=== PATIENT | female | born 1980 | race Caucasian/White ===

== ENCOUNTER 2022-04-24 11:12 | Emergency (ER) | payer OTHER, SELFPAY ==
[2022-04-24 11:19] VITALS: BP 134/83; PULSE 77; RESP 18; TEMP 37.6; O2SAT 99
--- NOTE | 2022-04-24 13:50 | ED.EAR ---
HPI - Ear Problem General Chief complaint: Ear Stated complaint: ear pain, neck pain Time Seen by Provider: 04/24/22 13:26 Source: patient and family History of Present Illness HPI Narrative: 42 years old white female complaining of right ear pain that started 5 days ago, was seen by urgent care 2 days later and started on doxycycline and ciprofloxacin dexamethasone eardrops, no improvement. Patient denies any fever, chills, nausea, vomiting, patient unable to sleep because of the severity of pain. Right ear canal clogged and containing discharge, no blood Related Data Home Medications Medication Instructions Recorded Confirmed azelastine 137 mcg (0.1 %) nasal 137 mcg intranasal Q12H 02/18/21 05/01/21 spray aerosol cetirizine 10 mg capsule (Zyrtec) 10 mg PO DAILY PRN 02/18/21 05/01/21 Allergies Allergy/AdvReac Type Severity Reaction Status Date / Time Penicillins Allergy Unknown Verified 12/04/13 19:48 Review of Systems Review of Systems: All systems reviewed & are unremarkable except as noted in HPI and below PMFSH Surgical History Surgical History H/O arthroscopy of right knee lateral release 2002. Dr. Weinberg History of cholecystectomy 2014 Family History Family History Father Diabetes mellitus Social History Social History Smoking status: Current every day smoker Alcohol intake: current Gender identity (if verbalized by the patient): Female Exam Narrative: General appearance: Well-developed, well-nourished Skin: Normal color Head: Normocephalic, nontraumatic Eyes: Clear conjunctiva ENT: Oropharynx normal, right ear canal exam showed thick almost dried yellowish discharge, edema, very narrow ear canal. Neck: Supple, nontender, right neck tender lymphadenopathy Chest and respiratory: Airway patent, no respiratory distress, no accessory muscle use Vascular: Normal peripheral pulses, normal capillary refill. Musculoskeletal: Normal range of motion, nontender back Neurologic: Alert and oriented ?3, [employer] is normal as tested, no gross motor deficit Course Course Emergency Course: Patient been using Q-tips to clean her ears vigorously in the last few days, otitis externa is my concern. Patient have the right ear drops, which I believe does not go deep enough in her ear canal because of the edema and obstruction. My plan to add a wick to help the drops to go deep in her ear canals. Also to change the doxycycline to cefdinir. And to refer patient if there is no improvement in [address] Desai. Vital Signs Vital signs: Vital Signs Temperature 37.6 C 04/24/22 11:19 Pulse Rate 77 04/24/22 11:19 Respiratory Rate 18 04/24/22 11:19 Blood Pressure 134/83 04/24/22 11:19 Pulse Oximetry 99 04/24/22 11:19 Oxygen Delivery Room Air 04/24/22 11:19 Temperature 37.6 C 04/24/22 11:19 Pulse Rate 77 04/24/22 11:19 Respiratory Rate 18 04/24/22 11:19 Blood Pressure 134/83 04/24/22 11:19 Pulse Oximetry 99 04/24/22 11:19 Oxygen Delivery Room Air 04/24/22 11:19 Medical Decision Making Vital Signs Vital Signs: Vital Signs Temperature 37.6 C 04/24/22 11:19 Pulse Rate 77 04/24/22 11:19 Respiratory Rate 18 04/24/22 11:19 Blood Pressure 134/83 04/24/22 11:19 Pulse Oximetry 99 04/24/22 11:19 Oxygen Delivery Room Air 04/24/22 11:19 Temperature 37.6 C 04/24/22 11:19 Pulse Rate 77 04/24/22 11:19 Respiratory Rate 18 04/24/22 11:19 Blood Pressure 134/83 04/24/22 11:19 Pulse Oximetry 99
[2022-04-24] MEDS: HYDROcodone/acetaminophen (*CRX) 5-325 MG TABLET 1 TAB PO (13:59)
[2022-04-24] MEDS: IBUPROFEN 600 MG TABLET PO (13:59)
== END 2022-04-24 14:39 | disposition home or self-care (01) ==
PROVIDERS: Emergency Provider Emergency Medicine
DX: H60.91 Unspecified otitis externa, right ear (principal); F17.200 Nicotine dependence, unspecified, uncomplicated
CPT/HCPCS: 99283; A9270

== ENCOUNTER 2022-10-17 15:33 | Outpatient (CLI) | payer OTHER, SELFPAY ==
--- NOTE | ~2022-10-17 | MM_ITS ---
EXAMINATION: MM screening [facility] BI w anmol HISTORY: Baseline screening mammogram TECHNIQUE: Craniocaudal and mediolateral oblique 3-D tomosynthesis images were obtained and synthetic 2-D images were generated. CAD analysis was submitted and interpreted. COMPARISON: None, baseline BREAST PARENCHYMAL COMPOSITION: The breasts are extremely dense, which lowers the sensitivity of mamm ography. FINDINGS: RIGHT BREAST: No suspicious mass, calcification, or architectural distortion are identified to sugges t malignancy. LEFT BREAST: An asymmetry is present in the middle third of the upper left breast on the mediolateral oblique view. IMPRESSION: 1. Left breast asymmetry on the mediolateral oblique view. 2. Additional mammographic views and possible breast ultrasound are recommended to evaluate the left breast asymmetry and establish a baseline given that this is the first mammographic examination. BI-RADS Category 0: Incomplete: Needs additional imaging evaluation. Reviewed, dictated and finalized at location A.
== END 2022-10-17 15:34 | disposition home or self-care (01) ==
LOC: ANHIMG 15:35
PROVIDERS: PCP Internal Medicine; Visit Provider Internal Medicine
DX: Z12.31 Encounter for screening mammogram for malignant neoplasm of breast (principal); R92.8 Other abnormal and inconclusive findings on diagnostic imaging of breast
CPT/HCPCS: 77063; 77067